=== PATIENT | male | born 1950 | race Caucasian/White ===

== ENCOUNTER 2021-05-21 07:31 | Day surgery (SDC) | payer MEDICARE ==
[~2021-05-21] VITALS: Ht 172.7 cm; Wt 109.3 kg
[~2021-05-21 07:31] MED LIST: EUTH125T PO; FARX1TAB3 PO; FINA5TAB2 PO; HYDR-3490 PO; LIDOCAINE 2% 100MG/5ML SDV (FOR ANES.) As Ordered ONE; METF10004 PO; METO1TAB7 PO; NS 1,000 ML IV ONE; SIMV20TA22 PO; propofoL 200 MG/20 ML VIAL As Ordered ONE
[2021-05-21] MEDS ORDERED: propofoL 200 MG/20 ML VIAL As Ordered ONE (09:43)
[2021-05-21 10:28] VITALS: BP 116/67
== END 2021-05-21 10:32 | disposition home or self-care (01) ==
LOC: M OPP 07:31
PROVIDERS: ATTEND Internal Medicine Gastroenterology
DX: K63.5 Polyp of colon (principal); K64.8 Other hemorrhoids; Z80.0 Family history of malignant neoplasm of digestive organs; Z86.010 Personal history of colon polyps; R19.5 Other fecal abnormalities; Z79.02 Long term (current) use of antithrombotics/antiplatelets; Z79.84 Long term (current) use of oral hypoglycemic drugs; Z79.899 Other long term (current) drug therapy

== ENCOUNTER → 2022-11-29 | Outpatient (REF) | payer MEDICARE ==
[~2022-11-29] MED LIST changes: -LIDOCAINE 2% 100MG/5ML SDV (FOR ANES.) As Ordered ONE; -NS 1,000 ML IV ONE; -propofoL 200 MG/20 ML VIAL As Ordered ONE
== END ==
LOC: M SFHCDERM 12:26
PROVIDERS: ATTEND Dermatology
DX: C44.42 Squamous cell carcinoma of skin of scalp and neck (principal); L57.0 Actinic keratosis

== ENCOUNTER → 2023-02-08 | Outpatient (REF) | payer MEDICARE | LOC: M SFHCDERM 14:52 | PROVIDERS: ATTEND Physician Assistant | DX: L82.1 Other seborrheic keratosis (principal) ==

== ENCOUNTER 2024-08-15 07:41 | Day surgery (SDC) | payer MEDICARE ==
[~2024-08-15] VITALS: Ht 172.7 cm; Wt 106.1 kg
[~2024-08-15 07:41] MED LIST changes: +[UNRECOGNIZED DRUG - CODE] PO
[2024-08-15] MEDS ORDERED: LIDOCAINE 2% 100 MG/5 ML SDV (FOR ANES.) As Ordered ONE (08:34)
[2024-08-15 08:53] VITALS: TEMP 97.8
[2024-08-15 09:15] VITALS: BP 114/61; O2SAT 95
== END 2024-08-15 09:25 | disposition home or self-care (01) ==
LOC: M OPP 07:41
PROVIDERS: ATTEND Internal Medicine Gastroenterology
DX: D12.4 Benign neoplasm of descending colon (principal); K64.8 Other hemorrhoids; Z86.0100 Personal history of colon polyps, unspecified; Z80.0 Family history of malignant neoplasm of digestive organs; G47.30 Sleep apnea, unspecified; Z79.899 Other long term (current) drug therapy; F17.290 Nicotine dependence, other tobacco product, uncomplicated